=== PATIENT | female | born 1965 | race Caucasian/White ===

== ENCOUNTER → 2023-09-12 | Outpatient (CLI) | payer BC ==
--- NOTE | 2023-09-12 18:52 | CT ---
EXAMINATION TYPE: CT chest w con CT DLP: 173.6 mGycm, Automated exposure control for dose reduction was used. DATE OF EXAM: 09/12/2023 5:10 PM COMPARISON: Chest radiograph from same day. Multiple CTs of the chest with most recent on a 02/25/2023 . CLINICAL INDICATION:Female, 57 years old with history of R91.1 SOLITARY PULMONARY NODULE; PHH, f/u no dules TECHNIQUE: Multiple axial images were obtained through the chest. Sagittal and coronal reformats were created for review. Contrast used:50ml mL of Isovue 370 with IV Contrast (None if empty) Oral contrast used: (None if empty) FINDINGS: LUNGS/ PLEURA: Is stable right lower lobe low-density nodule along the pleura measuring however 5 mm. Right intrafissural lymph node series 3 image 31 nodule along the posterior aspect is unchanged jere uring 4 mm series 3 image 31. Stable left lower lobe pulmonary nodule measuring 8 mm series 7 image 9 7 and more posteriorly measuring 4 mm series 7 image 83. AIRWAY: Patent and unremarkable. HEART: Size within normal limits. MEDIASTINUM: No gross evidence of adenopathy. VASCULATURE: No aortic aneurysm. Borderline ectasia of ascending thoracic aorta measuring up to 40 m m. MUSCULOSKELETAL: Mild disc degeneration changes are present throughout the thoracolumbar spine. SOFT TISSUES/LYMPH NODES: Unremarkable. LOWER NECK: No significant findings. UPPER ABDOMEN: No significant findings. IMPRESSION: 1. Stable pulmonary nodules. No new or enlarging pulmonary nodules. Continued yearly surveillance. 2. No evidence for acute process. Follow up recommendations for incidental pulmonary nodules, if there are any, are per [employer] or [employer]. [email or web address]
== END | disposition home or self-care (01) ==
LOC: RADCTMAIN 15:37
PROVIDERS: ATTEND Internal Medicine Critical Care Medicine
DX: R91.8 Other nonspecific abnormal finding of lung field (principal)
CPT/HCPCS: 71260; Q9967

== ENCOUNTER → 2023-09-12 | Outpatient (CLI) | payer BC ==
--- NOTE | 2023-09-13 10:19 | CT ---
EXAMINATION TYPE: CT angio abdomen pelvis CT DLP: 498.80 mGycm, Automated exposure control for dose reduction was used. 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 3-D reconstructed images and maximum intensity projection images were obtained. CT angio abdomen pel vis CT Contrast: Contrast used:80cc mL of Isovue 370 with IV Contrast, Oral contrast used: without Oral Contrast None FINDINGS: CTA Abdomen and pelvis: No evidence for intramural hematoma on noncontrast imaging. Postcontrast imag ing demonstrates surgical changes near the celiac access. Celiac axis is patent with mild narrowing a t the ostium up to 25-50%. The Splenic artery, common hepatic, left and right hepatic arteries and th e left gastric artery are all patent. The superior mesenteric artery is patent.. The inferior mesente monae artery is patent. The common iliac and bilateral external iliac and internal iliac arteries are p atent. No evidence for dissection or aneurysmal dilation. LOWER CHEST: No evidence of focal consolidation, pneumothorax or pleural effusion. LIVER: Unremarkable GALLBLADDER AND BILE DUCTS: Unremarkable. PANCREAS: Unremarkable. SPLEEN: Unremarkable. ADRENAL GLANDS: Unremarkable. KIDNEYS AND URETERS: No evidence of hydronephrosis or renal calculus. The ureters are unremarkable. PELVIS BLADDER: Unremarkable REPRODUCTIVE: Unremarkable. ABDOMEN & PELVIS STOMACH AND BOWEL: No evidence of bowel obstruction. Scattered colonic diverticula. PERITONEUM: No evidence of pneumoperitoneum or free fluid. VASCULATURE: No evidence of aortic aneurysm. MUSCULOSKELETAL: No acute osseous abnormalities LYMPH NODES: No gross evidence for lymphadenopathy. SOFT TISSUE/ABDOMINAL WALL: Fat-containing umbilical hernia. IMPRESSION 1. Celiac axis is patent with mild narrowing at the ostium up to 25-50%. 2. No evidence for dissection or aneurysm.
== END | disposition home or self-care (01) ==
LOC: RADCTMAIN 16:05
PROVIDERS: ATTEND Surgery Vascular Surgery
DX: I77.4 Celiac artery compression syndrome (principal)
CPT/HCPCS: 74174; Q9967